=== PATIENT | female | born 1975 | race Caucasian/White ===

== ENCOUNTER → 2016-10-19 | Outpatient (CLI) | payer BC ==
[~2016-10-19] MED LIST: FERROUS SULFAT325 M2 PO; IBUPROFEN600 MG PO; NORCO 5-325 TA1 EACH PO; VITAMIN D50000 UNIT PO
[2016-10-19 08:32] LABS: HEMOGLOBIN 11.6 gm/dl (12.3-15.3); RED BLOOD COUNT 4.54 M/UL (4.00-5.10); WHITE BLOOD COUNT 5.9 K/UL (4.5-11.0)
== END ==
LOC: OPSV2 07:59
PROVIDERS: Obstetrics & Gynecology
DX: Z01.812 Encounter for preprocedural laboratory examination (principal); N93.9 Abnormal uterine and vaginal bleeding, unspecified
CPT/HCPCS: 36415; 81001; 85025

== ENCOUNTER → 2016-10-26 | Day surgery (SDC) | payer BC ==
[~2016-10-26] VITALS: Ht 170.2 cm; Wt 160.1 kg
== END | disposition home or self-care (01) ==
LOC: OR 06:09
PROVIDERS: Obstetrics & Gynecology
PROC: 0UDB8ZZ Extraction of Endometrium, Via Natural or Artificial Opening Endoscopic (ICD-10-PCS; 2016-10-26)
PROC: 0UB98ZZ Excision of Uterus, Via Natural or Artificial Opening Endoscopic (ICD-10-PCS; principal; 2016-10-26 08:00)
DX: C54.1 Malignant neoplasm of endometrium (principal); N32.89 Other specified disorders of bladder; N84.0 Polyp of corpus uteri; N92.0 Excessive and frequent menstruation with regular cycle; G43.909 Migraine, unspecified, not intractable, without status migrainosus; D64.9 Anemia, unspecified; Z79.899 Other long term (current) drug therapy; Z90.49 Acquired absence of other specified parts of digestive tract
CPT/HCPCS: 84703; J1100; J1885; J2250; J2405; J2795; J3010; J7120

== ENCOUNTER → 2020-08-22 | Outpatient (CLI) | payer BC | LOC: EXRD 08:40 | DX: E78.1 Pure hyperglyceridemia (principal); R93.2 Abnormal findings on diagnostic imaging of liver and biliary tract; Z90.49 Acquired absence of other specified parts of digestive tract | CPT/HCPCS: 76705 ==